=== PATIENT | female | born 1990 | race Caucasian/White ===

== ENCOUNTER 2017-02-06 17:18 | Emergency (ER) | payer OTHER ==
[~2017-02-06] VITALS: Ht 160 cm; Wt 64.4 kg
[~2017-02-06 17:18] MED LIST: BIRTH CONTROL PILLS
[2017-02-06] MEDS ORDERED: ESCI5TAB PO (17:27)
--- NOTE | 2017-02-06 17:40 | NUR ---
Patient discharged to home in stable conditon. Written and verbal after care instructions given. Patient verbalizes understanding of instructions. Stressed follow up.
== END 2017-02-06 17:41 | disposition home or self-care (01) ==
LOC: ER 17:20
DX: R42 Dizziness and giddiness (principal); T43.225A Adverse effect of selective serotonin reuptake inhibitors, initial encounter; F41.9 Anxiety disorder, unspecified; F32.9 Major depressive disorder, single episode, unspecified; Z88.6 Allergy status to analgesic agent; Y92.89 Other specified places as the place of occurrence of the external cause
CPT/HCPCS: A4663

== ENCOUNTER 2018-08-02 19:12 | Emergency (ER) | payer OTHER ==
[~2018-08-02] VITALS: Ht 160 cm; Wt 66.7 kg
[~2018-08-02 19:12] MED LIST changes: +ESCI5TAB PO
--- NOTE | 2018-08-02 19:25 | NUR ---
MIGUEL SHELDON AT BEDSIDE FOR MSE.
--- NOTE | 2018-08-02 20:04 | NUR ---
Patient discharged to home in stable conditon. Written and verbal after care instructions given. Patient verbalizes understanding of instructions. PT D/C HOME W/ PRESCRIPTION. ALL BELONGINGS W/ PT. PT SELF-AMBULATED WITHOUT DIFFICULTY.
[2018-08-02 20:05] VITALS: BP 123/76
== END 2018-08-02 20:06 | disposition home or self-care (01) ==
LOC: ER 19:14
DX: J02.9 Acute pharyngitis, unspecified (principal); Z88.6 Allergy status to analgesic agent
CPT/HCPCS: A4663

== ENCOUNTER 2018-10-22 17:07 | Emergency (ER) | payer OTHER ==
[~2018-10-22] VITALS: Ht 160 cm; Wt 68.0 kg
--- NOTE | 2018-10-22 17:40 | NUR ---
PATIENT ALREADY SEEN BY ER DOCTOR BRIAN. ORDERS FOR XRAY
--- NOTE | 2018-10-22 17:59 | NUR ---
PATIENT WAITING IN ROOM FOR XRAY
== END 2018-10-22 18:48 | disposition home or self-care (01) ==
LOC: ER 17:09
DX: J20.9 Acute bronchitis, unspecified (principal); E03.9 Hypothyroidism, unspecified; Z79.1 Long term (current) use of non-steroidal anti-inflammatories (NSAID); Z90.89 Acquired absence of other organs; Z79.899 Other long term (current) drug therapy
CPT/HCPCS: 71046; A4663

== ENCOUNTER 2019-03-04 21:31 | Emergency (ER) | payer OTHER ==
[~2019-03-04] VITALS: Ht 160 cm; Wt 67.1 kg
[2019-03-04] MEDS ORDERED: ACET-2154 PO (22:02)
--- NOTE | 2019-03-04 22:02 | NUR ---
Dr. Rodriguez at bedside to evaluate pt, accompanied by me.
[2019-03-04 22:23] LABS: BASOPHILS % (AUTO) 0.4 % (0.0-2.0); EOSINOPHILS # (AUTO) 0.1 K/uL (0.0-0.7); HEMATOCRIT 41.8 % (31.2-41.9); HEMOGLOBIN 13.9 g/dL (10.9-14.3); LYMPHOCYTES # (AUTO) 2.2 K/uL (20.0-40.0); LYMPHOCYTES % (AUTO) 28.9 % (20.5-51.5); MEAN CORPUSCULAR HGB CONC 33 g/dL (32.3-35.6); MEAN CORPUSCULAR VOLUME 93.5 fL (75.5-95.3); MONOCYTES # (AUTO) 0.6 K/uL (2.0-10.0); NEUTROPHILS # (AUTO) 4.6 K/uL (1.8-8.9); NEUTROPHILS % (AUTO) 61.7 % (38.5-71.5); PLATELET COUNT (AUTO) 192 K/uL (179-408); RED BLOOD CELL COUNT(AUTO) 4.47 MIL/uL (3.63-4.92); WHITE BLOOD COUNT (AUTO) 7.5 K/uL (3.8-11.8)
[2019-03-04 22:39] LABS: *BILIRUBIN,URIN NEGATIVE (NEGATIVE); *BLOOD, URINE NEGATIVE (NEGATIVE); *CLARITY,URINE CLEAR (CLEAR); *COLOR,URINE YELLOW (YELLOW); *KETONES,URINE NEGATIVE (NEGATIVE); *UROBILINOGEN,URINE 0.2 E.U./dl (NORMAL); LEUKOCYTE ESTERASE ,URINE NEGATIVE (NEGATIVE); NITRITE, URINE NEGATIVE (NEGATIVE); UGLUCOSE NEGATIVE (NEGATIVE)
[2019-03-04 22:39] LABS: BILIRUBIN,DIRECT 0.2 mg/dL (0.0-0.2); BILIRUBIN,TOTAL 0.6 mg/dL (0.2-1.0); CREATININE 0.7 mg/dL (0.6-1.3); POTASSIUM 3.8 mmol/L (3.5-5.1)
[2019-03-04 22:44] LABS: *URINE HCG, QUAL NEGATIVE (NEGATIVE)
[2019-03-04 22:47] LABS: BACTERIA,URINE NONE SEEN /HPF (NONE SEEN); RBC,URINE 0-3 /HPF (0-3); SQUAMOUS EPITHELIAL CELL,UR MANY /HPF (NONE SEEN); WBC,URINE 0-3 /HPF (0-3)
[2019-03-04 23:21] VITALS: BP 112/77
== END 2019-03-04 23:22 | disposition home or self-care (01) ==
LOC: ER 21:32
DX: Z48.01 Encounter for change or removal of surgical wound dressing (principal); N39.0 Urinary tract infection, site not specified; R05 Cough; E03.9 Hypothyroidism, unspecified; Z90.89 Acquired absence of other organs; Z88.8 Allergy status to other drugs, medicaments and biological substances; Z79.899 Other long term (current) drug therapy
CPT/HCPCS: 36415; 71045; 83605; 84703; 85025; 87040; A4663

== ENCOUNTER 2019-11-27 10:45 | Emergency (ER) | payer SELFPAY ==
[~2019-11-27] VITALS: Ht 160 cm; Wt 68.0 kg
--- NOTE | 2019-11-27 12:04 | NUR ---
Patient discharged to home in stable conditon. Written and verbal after care instructions given. Patient verbalizes understanding of instructions.PT WALKS IN STEADY GAIT. Addendum: 11/27/19 at 1219 by ANSELMO PT NOT DRIVING
[2019-11-27] MEDS ORDERED: IBUPROFEN 600 MG TABLET ONE (12:08)
[2019-11-27] MEDS ORDERED: GUAIFENESIN/CODEINE 5 ML LIQUID UDC ONE ×2 (12:12→12:16)
--- NOTE | 2019-11-27 12:12 | NUR ---
PT STATES " MY COLON IS SENSITIVE TO IBUPFROFIN, NOTIFED. OKED FOR PT TO TAKE IBUPROFIN, CRACKERS AND JUICE PROVIDED FOR PT TO TAKE IT WITH MOTRIN.
[2019-11-27] MEDS ORDERED: GUAIFENESIN/CODEINE 5 ML LIQUID UDC PO ONE (12:15)
[2019-11-27] MEDS ORDERED: IBUPROFEN 600 MG TABLET PO ONE (12:15)
[2019-11-27] MEDS ORDERED: ACETAMINOPHEN 325 MG TABLET PO ONE (12:15)
--- NOTE | 2019-11-27 12:18 | NUR ---
PT REFUSED TYLENOL, SAID PT TOOK TYLENOL CLAIMS CONFIGURATION ANALYST.
== END 2019-11-27 12:20 | disposition home or self-care (01) ==
LOC: ER 10:45
DX: B34.9 Viral infection, unspecified (principal); R51 Headache; F10.10 Alcohol abuse, uncomplicated; F41.9 Anxiety disorder, unspecified; Z79.899 Other long term (current) drug therapy; Z88.6 Allergy status to analgesic agent
CPT/HCPCS: 87400; A4663

== ENCOUNTER 2022-12-13 14:18 | Emergency (ER) | payer OTHER ==
[~2022-12-13] VITALS: Ht 160 cm; Wt 63.5 kg
[~2022-12-13 14:18] MED LIST changes: +ACET-2154 PO; -BIRTH CONTROL PILLS
--- NOTE | 2022-12-13 16:04 | NUR ---
Patient ambulated to room 4A with brisk steady gait, no dyspnea seen, pending MD evaluation.
[2022-12-13] MEDS ORDERED: BENZ-13 PO (16:22)
[2022-12-13] MEDS ORDERED: PSEU120T83 PO (16:22)
--- NOTE | 2022-12-13 16:30 | NUR ---
Patient discharged to home in stable condition. Written and verbal after care instructions given. Patient verbalizes understanding of instructions. Stressed follow up or return to ER for worsening s/s.
[2022-12-13 16:32] VITALS: BP 115/81
== END 2022-12-13 16:30 | disposition home or self-care (01) ==
LOC: ER 14:23
DX: J02.8 Acute pharyngitis due to other specified organisms (principal); B97.89 Other viral agents as the cause of diseases classified elsewhere; R09.81 Nasal congestion; E03.9 Hypothyroidism, unspecified; Z82.3 Family history of stroke; Z82.49 Family history of ischemic heart disease and other diseases of the circulatory system; F41.9 Anxiety disorder, unspecified; Z79.899 Other long term (current) drug therapy
CPT/HCPCS: A4663

== ENCOUNTER 2024-06-14 18:24 | Emergency (ER) | payer OTHER ==
[~2024-06-14] VITALS: Ht 157.5 cm; Wt 69.4 kg
[~2024-06-14 18:24] MED LIST changes: +BENZ-13 PO; +PSEU120T83 PO
[2024-06-14 19:35] LABS: BASOPHILS % (AUTO) 0.6 % (0.0-2.0); DIFFERENTIAL COMMENT 1; EOSINOPHILS # (AUTO) 0.1 K/uL (0.0-0.7); EOSINOPHILS % (AUTO) 1.5 % (0.0-7.0); HEMATOCRIT 40.3 % (31.2-41.9); HEMOGLOBIN 13.2 g/dL (10.9-14.3); LYMPHOCYTES # (AUTO) 2.1 K/uL (0.8-4.8); MEAN CORPUSCULAR HEMOGLOBIN 30.9 uug (24.7-32.8); MEAN CORPUSCULAR HGB CONC 33 g/dL (32.3-35.6); MEAN CORPUSCULAR VOLUME 94.7 fL (75.5-95.3); MONOCYTES # (AUTO) 0.4 K/uL (0.1-1.30); MONOCYTES % (AUTO) 7.8 % (0.0-11.0); NEUTROPHILS # (AUTO) 2.4 K/uL (1.8-8.9); NEUTROPHILS % (AUTO) 48.1 % (38.5-71.5); PLATELET COUNT (AUTO) 196 K/uL (179-408); RED BLOOD CELL COUNT(AUTO) 4.25 MIL/uL (3.63-4.92); RED CELL DISTRIBUTION WIDTH 13.2 % (12.3-17.7); WHITE BLOOD COUNT (AUTO) 4.9 K/uL (3.8-11.8)
[2024-06-14 19:43] LABS: CALCIUM 9.2 mg/dL (8.5-10.1); CREATININE 0.6 mg/dL (0.6-1.3); POTASSIUM 3.7 mmol/L (3.5-5.1)
[2024-06-14 19:44] LABS: *URINE HCG, QUAL NEGATIVE (NEGATIVE)
--- NOTE | 2024-06-14 19:48 | NUR ---
Informed Radiology of negative pregnacy test
[2024-06-14] MEDS ORDERED: MAGN296S70 PO (20:17)
[2024-06-14 20:29] VITALS: BP 118/70; TEMP 98.7; O2SAT 97
== END 2024-06-14 20:25 | disposition home or self-care (01) ==
LOC: ER 18:25
DX: K59.00 Constipation, unspecified (principal); R10.2 Pelvic and perineal pain; J40 Bronchitis, not specified as acute or chronic; E03.9 Hypothyroidism, unspecified; Z90.49 Acquired absence of other specified parts of digestive tract; Z98.890 Other specified postprocedural states; Z79.899 Other long term (current) drug therapy
CPT/HCPCS: 36415; 74021; 84443; 84703; 85025; A4606; A4663